=== PATIENT | male | born 1980 | race Two or more races ===

== ENCOUNTER 2018-10-02 18:09 | Emergency (ER) | payer OTHER, SELFPAY ==
[~2018-10-02] VITALS: Ht 172.7 cm; Wt 90.9 kg
[~2018-10-02 18:09] MED LIST: RISP0.5T61 PO; [UNRECOGNIZED DRUG - REMARK]
[2018-10-02 18:21] VITALS: BP 154/101
[2018-10-02 19:14] LABS: BASOPHILS % (AUTO) 0.3 % (0.0-2.0); EOSINOPHILS % (AUTO) 3.2 % (1.0-6.0); HEMATOCRIT 45.2 % (41-53); HEMOGLOBIN 15.5 g/dL (13.5-17.5); LYMPHOCYTES % (AUTO) 29.7 % (22.0-44.0); MEAN CORPUSCULAR HEMOGLOBIN 31.6 pg (26.0-34.0); MEAN CORPUSCULAR HGB CONC 34.3 G/dL (31.0-37.0); MEAN CORPUSCULAR VOLUME 92 fL (80-100); MONOCYTES # (AUTO) 0.5 K/uL (0.1-1.0); MONOCYTES % (AUTO) 7.2 % (2.0-9.0); NEUTROPHILS # (AUTO) 3.9 K/uL (1.8-7.7); NEUTROPHILS % (AUTO) 59.6 % (40.0-70.0); PLATELET COUNT (AUTO) 187 K/uL (150-450); RED BLOOD CELL COUNT(AUTO) 4.91 MIL/uL (4.50-5.90); RED CELL DISTRIBUTION WIDTH 12.2 % (11.5-14.5)
[2018-10-02 19:23] LABS: ANION GAP 11 mmol/L (8-16); CALCIUM, TOTAL 9.2 mg/dL (8.8-10.5); CARBON DIOXIDE 27 mmol/L (22-29); CHLORIDE 101 mmol/L (98-107); CREATININE 0.93 mg/dL (0.60-1.30); GLOMERULAR FILTR. RATE CALC > 60 mL/min (>60); GLUCOSE,RANDOM 96 mg/dL (70-110); POTASSIUM 3.7 mmol/L (3.5-5.1); SODIUM SERUM 139 mmol/L (136-145); UREA NITROGEN, BLOOD 18 mg/dL (7-18)
[2018-10-02 19:28] LABS: ALANINE AMINOTRANSFERASE 68 U/L (12-78); ALBUMIN 4.3 g/dL (3.4-5.0); ALKALINE PHOSPHATASE 77 U/L (46-116); ASPARTATE AMINOTRANSFERASE 48 U/L (15-37); BILIRUBIN,TOTAL 1.5 mg/dL (0.1-1.0); TOTAL PROTEIN, SERUM 8.4 g/dL (6.4-8.2)
[2018-10-02] MEDS ORDERED: FLUO-125 PO (20:12)
[2018-10-02] MEDS ORDERED: LIB25 PO (20:13)
[2018-10-02 20:26] LABS: AMPHET/METH SCREEN,URINE NEGATIVE (NEGATIVE); BARBITURATE SCREEN, URINE NEGATIVE (NEGATIVE); BENZODIAZEPINES SCREEN,URINE POSITIVE (NEGATIVE); CANNABINOID SCREEN,URINE NEGATIVE (NEGATIVE); COCAINE SCREEN,URINE NEGATIVE (NEGATIVE); METHADONE SCREEN, URINE NEGATIVE (NEGATIVE); OPIATE SCREEN,URINE NEGATIVE (NEGATIVE)
[2018-10-02 20:31] LABS: PHENCYCLIDINE SCREEN,URINE NEGATIVE (NEGATIVE)
== END 2018-10-02 21:20 | disposition home or self-care (01) ==
LOC: EMS 18:10
DX: F32.9 Major depressive disorder, single episode, unspecified (principal); F10.20 Alcohol dependence, uncomplicated; Y90.0 Blood alcohol level of less than 20 mg/100 ml
CPT/HCPCS: 36415; 80053; 80307; 85025; 99284; G0480

== ENCOUNTER 2020-06-12 23:16 | Inpatient (IN) | payer MEDICAID, OTHER ==
[~2020-06-12] VITALS: Ht 172.7 cm; Wt 82.9 kg
[~2020-06-12 23:16] MED LIST changes: +FLUO-191 PO; -RISP0.5T61 PO; +RISP2TAB23 PO; -[UNRECOGNIZED DRUG - REMARK]
[2020-06-12 23:57] LABS: BASOPHILS % (AUTO) 0.8 % (0.0-2.0); EOSINOPHILS % (AUTO) 4.6 % (1.0-6.0); HEMATOCRIT 41.1 % (41-53); HEMOGLOBIN 13.7 g/dL (13.5-17.5); LYMPHOCYTES # (AUTO) 1.6 K/uL (1.0-4.8); LYMPHOCYTES % (AUTO) 39.8 % (22.0-44.0); MEAN CORPUSCULAR HEMOGLOBIN 31.6 pg (26.0-34.0); MEAN CORPUSCULAR HGB CONC 33.2 G/dL (31.0-37.0); MEAN CORPUSCULAR VOLUME 95 fL (80-100); MONOCYTES # (AUTO) 0.4 K/uL (0.1-1.0); NEUTROPHILS # (AUTO) 1.8 K/uL (1.8-7.7); NEUTROPHILS % (AUTO) 43.8 % (40.0-70.0); PLATELET COUNT (AUTO) 163 K/uL (150-450); RED BLOOD CELL COUNT(AUTO) 4.32 MIL/uL (4.50-5.90); RED CELL DISTRIBUTION WIDTH 12.8 % (11.5-14.5)
[2020-06-13 00:07] LABS: ANION GAP 11 mmol/L (8-16); CARBON DIOXIDE 26 mmol/L (22-29); CHLORIDE 100 mmol/L (98-107); CREATININE 0.91 mg/dL (0.60-1.30); GLOMERULAR FILTR. RATE CALC > 60 mL/min (>60); GLUCOSE,RANDOM 101 mg/dL (70-110); POTASSIUM 3.7 mmol/L (3.5-5.1); SODIUM SERUM 137 mmol/L (136-145); UREA NITROGEN, BLOOD 11 mg/dL (7-18)
[2020-06-13 00:13] LABS: ALANINE AMINOTRANSFERASE 79 U/L (12-78); ALBUMIN 3.4 g/dL (3.4-5.0); ALKALINE PHOSPHATASE 64 U/L (46-116); ASPARTATE AMINOTRANSFERASE 66 U/L (15-37); BILIRUBIN,TOTAL 0.6 mg/dL (0.1-1.0); TOTAL PROTEIN, SERUM 7.4 g/dL (6.4-8.2)
[2020-06-13] MEDS ORDERED: FLUoxetine HCL 20 MG CAPSULE PO ONE (02:15)
[2020-06-13] MEDS ORDERED: RisperiDONE 1 MG TABLET PO ONE (02:15)
[2020-06-13 03:24] LABS: AMPHET/METH SCREEN,URINE NEGATIVE (NEGATIVE); BARBITURATE SCREEN, URINE NEGATIVE (NEGATIVE); BENZODIAZEPINES SCREEN,URINE NEGATIVE (NEGATIVE); CANNABINOID SCREEN,URINE POSITIVE (NEGATIVE); COCAINE SCREEN,URINE NEGATIVE (NEGATIVE); METHADONE SCREEN, URINE NEGATIVE (NEGATIVE); OPIATE SCREEN,URINE NEGATIVE (NEGATIVE); PHENCYCLIDINE SCREEN,URINE NEGATIVE (NEGATIVE)
[2020-06-13 03:37] LABS: APPEARANCE,URINE CLEAR (CLEAR); BILIRUBIN,URINE NEGATIVE (NEGATIVE); GLUCOSE, URINE (UA) NEGATIVE (NEGATIVE); KETONES,URINE NEGATIVE (NEGATIVE); LEUKOCYTE ESTERASE ,URINE NEGATIVE (NEGATIVE); NITRATE,URINE NEGATIVE (NEGATIVE); OCCULT BLOOD,URINE NEGATIVE (NEGATIVE); PH,URINE 6.5 (5.0-8.0); PROTEIN,URINE NEGATIVE (NEGATIVE)
[2020-06-13 07:37] VITALS: BP 122/74
[2020-06-13 16:10] VITALS: BP 118/64
[2020-06-13] MEDS: RisperiDONE 2 MG TABLET PO SCH (16:18)
[2020-06-13] MEDS: LORazepam 2 MG TABLET PO PRN (16:18)
[2020-06-13] MEDS: HALOPERIDOL 5 MG TABLET PO PRN (16:18)
[2020-06-13] MEDS ORDERED: CloNIDine HCL 0.1 MG TABLET PO PRN (16:45)
[2020-06-13] MEDS ORDERED: ONDANSETRON HCL 4 MG TABLET PO PRN (16:45)
[2020-06-13] MEDS ORDERED: PETROLATUM,WHITE 28 GM JELLY TP PRN (16:45)
[2020-06-13] MEDS ORDERED: GuaiFENesin/D-METHORPHAN [SUGAR-FREE] 200-20MG/10 ML SYRUP UDCUP PO PRN (16:45)
[2020-06-13] MEDS ORDERED: ALBUTEROL SULFATE HFA 90 MCG/PUFF 8 GM INHALER IH PRN (16:45)
[2020-06-13] MEDS ORDERED: MAG HYDROX/AL HYDROX/SIMETH ES 30 ML SUSPENSION UDCUP PO PRN (16:45)
[2020-06-13] MEDS ORDERED: LOPERAMIDE HCL 2 MG CAPSULE PO PRN (16:45)
[2020-06-13] MEDS ORDERED: ACETAMINOPHEN 325 MG TABLET PO PRN (16:45)
[2020-06-13] MEDS ORDERED: IBUPROFEN 400 MG TABLET PO PRN (16:45)
[2020-06-13] MEDS ORDERED: DOCUSATE SODIUM 100 MG CAPSULE PO PRN (16:45)
[2020-06-13] MEDS ORDERED: MAGNESIUM HYDROXIDE SUSPENSION 30 ML UDCUP PO PRN (16:45)
[2020-06-14 01:48] VITALS: BP 114/71
[2020-06-14] MEDS: LORazepam 2 MG TABLET PO PRN ×3 (01:51→20:03)
[2020-06-14] MEDS: ZOLPIDEM TARTRATE 10 MG TABLET PO PRN ×2 (01:51→20:03)
[2020-06-14 08:00] LABS: CHOL/HDL RATIO 3.4 (4.2-7.3)
[2020-06-14] MEDS: RisperiDONE 2 MG TABLET PO SCH ×2 (08:32→17:51)
[2020-06-14 08:35] VITALS: BP 120/66
[2020-06-14 16:05] VITALS: BP 111/78
[2020-06-14] MEDS: HALOPERIDOL 5 MG TABLET PO PRN (20:04)
[2020-06-15 03:52] VITALS: BP 124/76
[2020-06-15 08:26] VITALS: BP 112/65
[2020-06-15] MEDS: RisperiDONE 2 MG TABLET PO SCH ×2 (08:30→16:28)
[2020-06-15] MEDS: LORazepam 2 MG TABLET PO PRN (10:58)
[2020-06-15] MEDS: HALOPERIDOL 5 MG TABLET PO PRN (10:58)
[2020-06-15 16:17] VITALS: BP 116/80
[2020-06-15] MEDS: NICOTINE 14 MG/24 HOUR PATCH TD PRN (16:43)
[2020-06-15] MEDS: ZOLPIDEM TARTRATE 10 MG TABLET PO PRN (20:56)
[2020-06-16 00:06] VITALS: BP 132/89
[2020-06-16] MEDS: HALOPERIDOL 5 MG TABLET PO PRN ×4 (00:18→21:18)
[2020-06-16] MEDS: LORazepam 2 MG TABLET PO PRN ×4 (00:19→21:18)
[2020-06-16] MEDS: RisperiDONE 2 MG TABLET PO SCH ×2 (08:04→16:06)
[2020-06-16 08:20] VITALS: BP 122/73
[2020-06-16 16:04] VITALS: BP 121/79
[2020-06-16] MEDS: NICOTINE 14 MG/24 HOUR PATCH TD PRN (16:48)
[2020-06-17 04:10] VITALS: BP 118/75
[2020-06-17 08:03] VITALS: BP 106/72
[2020-06-17] MEDS: LORazepam 2 MG TABLET PO PRN ×2 (08:11→16:31)
[2020-06-17] MEDS: RisperiDONE 2 MG TABLET PO SCH ×2 (08:11→16:31)
[2020-06-17 16:08] VITALS: BP 116/80
[2020-06-17] MEDS: HALOPERIDOL 5 MG TABLET PO PRN (16:31)
[2020-06-17] MEDS: ZOLPIDEM TARTRATE 10 MG TABLET PO PRN (20:49)
[2020-06-18] MEDS: LORazepam 2 MG TABLET PO PRN ×4 (05:38→22:36)
[2020-06-18 05:49] VITALS: BP 121/84
[2020-06-18] MEDS: RisperiDONE 2 MG TABLET PO SCH (08:37)
[2020-06-18] MEDS: NICOTINE 14 MG/24 HOUR PATCH TD PRN (13:25)
[2020-06-18] MEDS: HALOPERIDOL 5 MG TABLET PO PRN ×3 (13:30→22:36)
[2020-06-18 15:15] VITALS: BP 112/73
[2020-06-18] MEDS: RisperiDONE 3 MG TABLET PO SCH (16:18)
[2020-06-18 17:47] VITALS: BP 132/82
[2020-06-18] MEDS: ZOLPIDEM TARTRATE 10 MG TABLET PO PRN (20:53)
[2020-06-19 05:59] VITALS: BP 128/78
[2020-06-19 08:33] VITALS: BP 116/62
[2020-06-19] MEDS: RisperiDONE 3 MG TABLET PO SCH ×2 (08:33→16:15)
[2020-06-19] MEDS: HALOPERIDOL 5 MG TABLET PO PRN ×3 (08:41→20:14)
[2020-06-19] MEDS: LORazepam 2 MG TABLET PO PRN ×3 (08:41→20:14)
[2020-06-19] MEDS: NICOTINE 14 MG/24 HOUR PATCH TD PRN (15:57)
[2020-06-19 16:06] VITALS: BP 117/64
[2020-06-19] MEDS: ZOLPIDEM TARTRATE 10 MG TABLET PO PRN (20:14)
[2020-06-20 06:08] VITALS: BP 128/70
[2020-06-20 08:54] VITALS: BP 110/77
[2020-06-20] MEDS: RisperiDONE 3 MG TABLET PO SCH ×2 (09:13→16:55)
[2020-06-20] MEDS: LORazepam 2 MG TABLET PO PRN (12:46)
[2020-06-20] MEDS: HALOPERIDOL 5 MG TABLET PO PRN (12:46)
[2020-06-20 16:04] VITALS: BP 107/70
[2020-06-20] MEDS: ZOLPIDEM TARTRATE 10 MG TABLET PO PRN (20:21)
[2020-06-21 05:10] VITALS: BP 121/73
[2020-06-21] MEDS: RisperiDONE 3 MG TABLET PO SCH (07:54)
[2020-06-21 08:01] VITALS: BP 131/83
[2020-06-21] MEDS: LORazepam 2 MG TABLET PO PRN ×2 (08:47→12:49)
[2020-06-21] MEDS: HALOPERIDOL 5 MG TABLET PO PRN ×2 (08:47→12:49)
[2020-06-21] MEDS ORDERED: RISP3TAB14 PO (12:58)
== END 2020-06-21 16:45 | disposition home or self-care (01) | DRG 750 ==
LOC: EMS 23:17 → B3A 06-13 03:26
PROVIDERS: ADMIT Psychiatry & Neurology Psychiatry; ATTEND Psychiatry & Neurology Psychiatry
DX: F20.9 Schizophrenia, unspecified (principal); E78.5 Hyperlipidemia, unspecified; D72.819 Decreased white blood cell count, unspecified; F10.10 Alcohol abuse, uncomplicated; R45.851 Suicidal ideations; Z91.14 Patient's other noncompliance with medication regimen; R74.0 Nonspecific elevation of levels of transaminase and lactic acid dehydrogenase [LDH]
CPT/HCPCS: G0480

== ENCOUNTER 2021-08-01 20:32 | Inpatient (IN) | payer MEDICAID, OTHER ==
[~2021-08-01] VITALS: Ht 172.7 cm; Wt 78.8 kg
[~2021-08-01 20:32] MED LIST changes: -FLUO-191 PO; -RISP2TAB23 PO; +RISP3TAB35 PO
[2021-08-01 21:00] LABS: COVID AG,FIA SOURCE NASOPHARYNGEAL
[2021-08-01 21:22] LABS: AMPHET/METH SCREEN,URINE NEGATIVE (NEGATIVE); BARBITURATE SCREEN, URINE NEGATIVE (NEGATIVE); BENZODIAZEPINES SCREEN,URINE NEGATIVE (NEGATIVE); CANNABINOID SCREEN,URINE POSITIVE (NEGATIVE); COCAINE SCREEN,URINE NEGATIVE (NEGATIVE); METHADONE SCREEN, URINE NEGATIVE (NEGATIVE); OPIATE SCREEN,URINE NEGATIVE (NEGATIVE); PHENCYCLIDINE SCREEN,URINE NEGATIVE (NEGATIVE)
[2021-08-01 23:28] LABS: BASOPHILS % (AUTO) 0.6 % (0.0-2.0); EOSINOPHILS % (AUTO) 3.8 % (1.0-6.0); HEMATOCRIT 39.1 % (41-53); HEMOGLOBIN 13.3 g/dL (13.5-17.5); LYMPHOCYTES # (AUTO) 1.5 K/uL (1.0-4.8); MEAN CORPUSCULAR HEMOGLOBIN 32.2 pg (26.0-34.0); MEAN CORPUSCULAR HGB CONC 34.1 G/dL (31.0-37.0); MEAN CORPUSCULAR VOLUME 95 fL (80-100); MONOCYTES # (AUTO) 0.5 K/uL (0.1-1.0); NEUTROPHILS # (AUTO) 2.6 K/uL (1.8-7.7); NEUTROPHILS % (AUTO) 54.6 % (40.0-70.0); PLATELET COUNT (AUTO) 170 K/uL (150-450); RED BLOOD CELL COUNT(AUTO) 4.13 MIL/uL (4.50-5.90); RED CELL DISTRIBUTION WIDTH 13.6 % (11.5-14.5)
[2021-08-01 23:38] LABS: ANION GAP 7 mmol/L (8-16); CALCIUM, TOTAL 8.8 mg/dL (8.8-10.5); CARBON DIOXIDE 29 mmol/L (22-29); CHLORIDE 102 mmol/L (98-107); CREATININE 0.81 mg/dL (0.60-1.30); GLOMERULAR FILTR. RATE CALC > 60 mL/min (>60); GLUCOSE,RANDOM 131 mg/dL (70-110); POTASSIUM 4.1 mmol/L (3.5-5.1); SODIUM SERUM 138 mmol/L (136-145); UREA NITROGEN, BLOOD 23 mg/dL (7-18)
[2021-08-01 23:44] LABS: ALANINE AMINOTRANSFERASE 35 U/L (12-78); ALBUMIN 3.1 g/dL (3.4-5.0); ALKALINE PHOSPHATASE 90 U/L (46-116); ASPARTATE AMINOTRANSFERASE 32 U/L (15-37); BILIRUBIN,TOTAL 0.5 mg/dL (0.1-1.0); TOTAL PROTEIN, SERUM 6.9 g/dL (6.4-8.2)
[2021-08-02] VITALS (7 sets, daily range): BP systolic 99–126; BP diastolic 63–78
[2021-08-02] MEDS ORDERED: LORazepam 2 MG TABLET PO PRN ×2 (00:15→19:15)
[2021-08-02 07:06] LABS: CHOLESTEROL 156 mg/dL (131-200); HDL CHOLESTEROL 78 mg/dL (40-60); LDL CHOL (CALC.) 60 mg/dL (0-130); TRIGLYCERIDES 88 mg/dL (15-150)
[2021-08-02] MEDS ORDERED: ACETAMINOPHEN 325 MG TABLET PO PRN (11:15)
[2021-08-02] MEDS ORDERED: PROMETHAZINE HCL 25 MG TABLET PO PRN (11:15)
[2021-08-02] MEDS ORDERED: MAG HYDROX/AL HYDROX/SIMETH ES 30 ML SUSPENSION UDCUP PO PRN (11:15)
[2021-08-02] MEDS ORDERED: PALIPERIDONE PALMITATE 234 MG/1.5 ML SYRINGE IM ONE (11:15)
[2021-08-02] MEDS ORDERED: MAGNESIUM HYDROXIDE SUSPENSION 30 ML UDCUP PO PRN (11:15)
[2021-08-02] MEDS ORDERED: HydrOXYzine PAMOATE 50 MG CAPSULE PO PRN (11:15)
[2021-08-02] MEDS ORDERED: LOPERAMIDE HCL 2 MG CAPSULE PO PRN (11:15)
[2021-08-02] MEDS ORDERED: TUBERCULIN, PURIFIED PROTEIN DERIVATIVE 5 TU/0.1 ML SYRINGE ID ONE (11:15)
[2021-08-02] MEDS ORDERED: GuaiFENesin/D-METHORPHAN [SUGAR-FREE] 200-20MG/10 ML SYRUP UDCUP PO PRN (11:15)
[2021-08-02] MEDS: THIAMINE 100 MG TABLET PO SCH (16:27)
[2021-08-02] MEDS ORDERED: CYANOCOBALAMIN 1,000 MCG/ML VIAL IM ONE (19:15)
[2021-08-02] MEDS: MELATONIN 5 MG TABLET PO SCH (20:23)
[2021-08-02] MEDS ORDERED: OLANZapine 5 MG RAPDIS TABLET PO SCH (21:00)
[2021-08-03] MEDS ORDERED: LORazepam 2 MG TABLET PO PRN (07:00)
[2021-08-03 07:30] LABS: HEMOGLOBIN A1C 5.7 % (3.8-5.6)
[2021-08-03 07:47] LABS: CHOL/HDL RATIO 2.4 (4.2-7.3); FREE T4 (FREE THYROXINE) 0.94 ng/dL (0.76-1.46); THYROID STIMULATING HORMONE 2.66 uIU/mL (0.36-3.74)
[2021-08-03 08:11] VITALS: BP 118/82
[2021-08-03] MEDS: NALTREXONE HCL 50 MG TABLET PO SCH (09:02)
[2021-08-03] MEDS: OMEGA-3/DHA/EPA/FISH OIL 1,000 MG CAPSULE PO SCH (09:04)
[2021-08-03] MEDS: MULTIVITAMINS WITH MINERALS, THERAPEUTIC TABLET PO SCH (09:04)
[2021-08-03] MEDS: FOLIC ACID 1 MG TABLET PO SCH (09:04)
[2021-08-03] MEDS: THIAMINE 100 MG TABLET PO SCH ×2 (09:04→16:02)
[2021-08-03] MEDS: LORazepam 2 MG TABLET PO SCH ×4 (09:04→20:25)
[2021-08-03 10:15] VITALS: BP 118/82
[2021-08-03 14:08] VITALS: BP 102/64
[2021-08-03 16:00] VITALS: BP 116/74
[2021-08-03] MEDS: OLANZapine 10 MG RAPDIS TABLET PO SCH (20:25)
[2021-08-03] MEDS: MELATONIN 5 MG TABLET PO SCH (20:25)
[2021-08-03 20:31] VITALS: BP 110/69
[2021-08-04 08:00] VITALS: BP 125/80
[2021-08-04] MEDS: THIAMINE 100 MG TABLET PO SCH ×2 (08:18→16:12)
[2021-08-04] MEDS: OMEGA-3/DHA/EPA/FISH OIL 1,000 MG CAPSULE PO SCH (08:18)
[2021-08-04] MEDS: MULTIVITAMINS WITH MINERALS, THERAPEUTIC TABLET PO SCH (08:18)
[2021-08-04] MEDS: LORazepam 2 MG TABLET PO SCH ×4 (08:18→20:11)
[2021-08-04] MEDS: FOLIC ACID 1 MG TABLET PO SCH (08:18)
[2021-08-04] MEDS: NALTREXONE HCL 50 MG TABLET PO SCH (08:18)
[2021-08-04 17:00] VITALS: BP 117/81
[2021-08-04 18:51] VITALS: BP 117/81
[2021-08-04] MEDS ORDERED: NICOTINE 21 MG/24 HOUR PATCH TD PRN (19:00)
[2021-08-04] MEDS: MELATONIN 5 MG TABLET PO SCH (20:10)
[2021-08-04] MEDS: DIVALPROEX SODIUM 500 MG ER TABLET PO SCH (20:11)
[2021-08-04] MEDS: OLANZapine 10 MG RAPDIS TABLET PO SCH (20:11)
[2021-08-05] MEDS: ZOLPIDEM TARTRATE 10 MG TABLET PO PRN (01:06)
[2021-08-05] MEDS ORDERED: LORazepam 1 MG TABLET PO PRN (07:00)
[2021-08-05 08:00] VITALS: BP 119/65
[2021-08-05] MEDS: NALTREXONE HCL 50 MG TABLET PO SCH (09:09)
[2021-08-05] MEDS: FOLIC ACID 1 MG TABLET PO SCH (09:11)
[2021-08-05] MEDS: OMEGA-3/DHA/EPA/FISH OIL 1,000 MG CAPSULE PO SCH (09:11)
[2021-08-05] MEDS: THIAMINE 100 MG TABLET PO SCH ×2 (09:11→16:18)
[2021-08-05] MEDS: LORazepam 1 MG TABLET PO SCH ×4 (09:11→20:11)
[2021-08-05] MEDS: MULTIVITAMINS WITH MINERALS, THERAPEUTIC TABLET PO SCH (09:12)
[2021-08-05 16:02] VITALS: BP 121/76
[2021-08-05] MEDS: MELATONIN 5 MG TABLET PO SCH (20:10)
[2021-08-05] MEDS: DIVALPROEX SODIUM 500 MG ER TABLET PO SCH (20:10)
[2021-08-05] MEDS: OLANZapine 10 MG RAPDIS TABLET PO SCH (20:11)
[2021-08-06] MEDS: ZOLPIDEM TARTRATE 10 MG TABLET PO PRN (00:27)
[2021-08-06] MEDS ORDERED: LORazepam 1 MG TABLET PO PRN (07:00)
[2021-08-06] MEDS ORDERED: PALIPERIDONE PALMITATE 156 MG/ML SYRINGE IM ONE (09:00)
[2021-08-06 09:53] VITALS: BP 118/72
[2021-08-06] MEDS: MULTIVITAMINS WITH MINERALS, THERAPEUTIC TABLET PO SCH (11:24)
[2021-08-06] MEDS: FOLIC ACID 1 MG TABLET PO SCH (11:24)
[2021-08-06] MEDS: NALTREXONE HCL 50 MG TABLET PO SCH (11:24)
[2021-08-06] MEDS: FLUoxetine HCL 20 MG CAPSULE PO SCH (11:24)
[2021-08-06] MEDS: THIAMINE 100 MG TABLET PO SCH ×2 (11:25→16:00)
[2021-08-06] MEDS: OMEGA-3/DHA/EPA/FISH OIL 1,000 MG CAPSULE PO SCH (11:25)
[2021-08-06 16:40] VITALS: BP 139/86
[2021-08-06] MEDS: MELATONIN 5 MG TABLET PO SCH (20:05)
[2021-08-06] MEDS: DIVALPROEX SODIUM 500 MG ER TABLET PO SCH (20:06)
[2021-08-06] MEDS: OLANZapine 10 MG RAPDIS TABLET PO SCH (20:06)
[2021-08-07] MEDS: THIAMINE 100 MG TABLET PO SCH ×2 (08:42→16:01)
[2021-08-07] MEDS: FLUoxetine HCL 20 MG CAPSULE PO SCH (08:42)
[2021-08-07] MEDS: MULTIVITAMINS WITH MINERALS, THERAPEUTIC TABLET PO SCH (08:42)
[2021-08-07] MEDS: FOLIC ACID 1 MG TABLET PO SCH (08:42)
[2021-08-07] MEDS: OMEGA-3/DHA/EPA/FISH OIL 1,000 MG CAPSULE PO SCH (08:42)
[2021-08-07] MEDS: NALTREXONE HCL 50 MG TABLET PO SCH (08:42)
[2021-08-07 08:56] VITALS: BP 112/65
[2021-08-07 16:24] VITALS: BP 114/60
[2021-08-07] MEDS: OLANZapine 10 MG RAPDIS TABLET PO SCH (20:22)
[2021-08-07] MEDS: MELATONIN 5 MG TABLET PO SCH (20:22)
[2021-08-07] MEDS: DIVALPROEX SODIUM 500 MG ER TABLET PO SCH (20:22)
[2021-08-08 07:31] LABS: COVID AG,FIA SOURCE NASAL SWAB
[2021-08-08 08:00] VITALS: BP 114/68
[2021-08-08] MEDS: FOLIC ACID 1 MG TABLET PO SCH (08:44)
[2021-08-08] MEDS: MULTIVITAMINS WITH MINERALS, THERAPEUTIC TABLET PO SCH (08:44)
[2021-08-08] MEDS: NALTREXONE HCL 50 MG TABLET PO SCH (08:44)
[2021-08-08] MEDS: FLUoxetine HCL 20 MG CAPSULE PO SCH (08:44)
[2021-08-08] MEDS: THIAMINE 100 MG TABLET PO SCH ×2 (08:44→15:56)
[2021-08-08] MEDS: OMEGA-3/DHA/EPA/FISH OIL 1,000 MG CAPSULE PO SCH (08:44)
[2021-08-08 16:03] VITALS: BP 109/61
[2021-08-08] MEDS: OLANZapine 5 MG RAPDIS TABLET PO PRN (17:53)
[2021-08-08] MEDS: DIVALPROEX SODIUM 500 MG ER TABLET PO SCH (20:23)
[2021-08-08] MEDS: MELATONIN 5 MG TABLET PO SCH (20:23)
[2021-08-08] MEDS: OLANZapine 10 MG RAPDIS TABLET PO SCH (20:23)
[2021-08-09 08:06] VITALS: BP 107/70
[2021-08-09] MEDS: FOLIC ACID 1 MG TABLET PO SCH (08:51)
[2021-08-09] MEDS: FLUoxetine HCL 20 MG CAPSULE PO SCH (08:51)
[2021-08-09] MEDS: THIAMINE 100 MG TABLET PO SCH ×2 (08:51→16:00)
[2021-08-09] MEDS: MULTIVITAMINS WITH MINERALS, THERAPEUTIC TABLET PO SCH (08:51)
[2021-08-09] MEDS: NALTREXONE HCL 50 MG TABLET PO SCH (08:52)
[2021-08-09] MEDS: OMEGA-3/DHA/EPA/FISH OIL 1,000 MG CAPSULE PO SCH (09:05)
[2021-08-09 16:13] VITALS: BP 109/65
[2021-08-09] MEDS: MELATONIN 5 MG TABLET PO SCH (20:17)
[2021-08-09] MEDS: DIVALPROEX SODIUM 500 MG ER TABLET PO SCH (20:17)
[2021-08-09] MEDS: OLANZapine 10 MG RAPDIS TABLET PO SCH (20:17)
[2021-08-10] MEDS: OMEGA-3/DHA/EPA/FISH OIL 1,000 MG CAPSULE PO SCH (08:20)
[2021-08-10] MEDS: MULTIVITAMINS WITH MINERALS, THERAPEUTIC TABLET PO SCH (08:20)
[2021-08-10] MEDS: NALTREXONE HCL 50 MG TABLET PO SCH (08:20)
[2021-08-10] MEDS: FLUoxetine HCL 20 MG CAPSULE PO SCH (08:20)
[2021-08-10] MEDS: THIAMINE 100 MG TABLET PO SCH ×2 (08:20→16:04)
[2021-08-10] MEDS: FOLIC ACID 1 MG TABLET PO SCH (08:20)
[2021-08-10 08:57] VITALS: BP 113/64
[2021-08-10 16:00] VITALS: BP 99/68
[2021-08-10] MEDS: MELATONIN 5 MG TABLET PO SCH (20:08)
[2021-08-10] MEDS: OLANZapine 10 MG RAPDIS TABLET PO SCH (20:08)
[2021-08-10] MEDS: DIVALPROEX SODIUM 500 MG ER TABLET PO SCH (20:09)
[2021-08-11 09:23] VITALS: BP 106/67
[2021-08-11] MEDS: MULTIVITAMINS WITH MINERALS, THERAPEUTIC TABLET PO SCH (09:33)
[2021-08-11] MEDS: FOLIC ACID 1 MG TABLET PO SCH (09:33)
[2021-08-11] MEDS: THIAMINE 100 MG TABLET PO SCH ×2 (09:33→16:10)
[2021-08-11] MEDS: FLUoxetine HCL 20 MG CAPSULE PO SCH (09:33)
[2021-08-11] MEDS: NALTREXONE HCL 50 MG TABLET PO SCH (09:33)
[2021-08-11] MEDS: OMEGA-3/DHA/EPA/FISH OIL 1,000 MG CAPSULE PO SCH (09:33)
[2021-08-11 17:06] VITALS: BP 102/62
[2021-08-11] MEDS: OLANZapine 10 MG RAPDIS TABLET PO SCH (20:25)
[2021-08-11] MEDS: DIVALPROEX SODIUM 500 MG ER TABLET PO SCH (20:25)
[2021-08-11] MEDS: MELATONIN 5 MG TABLET PO SCH (20:25)
[2021-08-12] MEDS: MULTIVITAMINS WITH MINERALS, THERAPEUTIC TABLET PO SCH (08:48)
[2021-08-12] MEDS: THIAMINE 100 MG TABLET PO SCH (08:48)
[2021-08-12] MEDS: OMEGA-3/DHA/EPA/FISH OIL 1,000 MG CAPSULE PO SCH (08:48)
[2021-08-12] MEDS: FLUoxetine HCL 20 MG CAPSULE PO SCH (08:49)
[2021-08-12] MEDS: FOLIC ACID 1 MG TABLET PO SCH (08:49)
[2021-08-12] MEDS: NALTREXONE HCL 50 MG TABLET PO SCH (08:50)
[2021-08-12 09:46] VITALS: BP 104/58
[2021-08-12 16:00] VITALS: BP 115/66
[2021-08-12] MEDS: MELATONIN 5 MG TABLET PO SCH (20:46)
[2021-08-12] MEDS: OLANZapine 10 MG RAPDIS TABLET PO SCH (20:46)
[2021-08-12] MEDS: DIVALPROEX SODIUM 500 MG ER TABLET PO SCH (20:46)
[2021-08-13] MEDS: FLUoxetine HCL 20 MG CAPSULE PO SCH (08:57)
[2021-08-13] MEDS: OMEGA-3/DHA/EPA/FISH OIL 1,000 MG CAPSULE PO SCH (08:57)
[2021-08-13] MEDS: MULTIVITAMINS WITH MINERALS, THERAPEUTIC TABLET PO SCH (08:57)
[2021-08-13] MEDS: NALTREXONE HCL 50 MG TABLET PO SCH (08:57)
[2021-08-13 10:13] VITALS: BP 140/85
[2021-08-13 16:37] VITALS: BP 109/68
[2021-08-13] MEDS: DIVALPROEX SODIUM 500 MG ER TABLET PO SCH (21:13)
[2021-08-13] MEDS: MELATONIN 5 MG TABLET PO SCH (21:14)
[2021-08-13] MEDS: OLANZapine 10 MG RAPDIS TABLET PO SCH (21:14)
[2021-08-14] MEDS: NALTREXONE HCL 50 MG TABLET PO SCH (09:05)
[2021-08-14] MEDS: FLUoxetine HCL 20 MG CAPSULE PO SCH (09:05)
[2021-08-14] MEDS: MULTIVITAMINS WITH MINERALS, THERAPEUTIC TABLET PO SCH (09:05)
[2021-08-14] MEDS: OMEGA-3/DHA/EPA/FISH OIL 1,000 MG CAPSULE PO SCH (09:05)
[2021-08-14 09:06] VITALS: BP 126/82
[2021-08-14 17:04] VITALS: BP 119/76
[2021-08-14] MEDS: OLANZapine 10 MG RAPDIS TABLET PO SCH (20:54)
[2021-08-14] MEDS: DIVALPROEX SODIUM 500 MG ER TABLET PO SCH (20:54)
[2021-08-14] MEDS: MELATONIN 5 MG TABLET PO SCH (20:54)
[2021-08-15] MEDS: MULTIVITAMINS WITH MINERALS, THERAPEUTIC TABLET PO SCH (08:28)
[2021-08-15] MEDS: NALTREXONE HCL 50 MG TABLET PO SCH (08:28)
[2021-08-15] MEDS: OMEGA-3/DHA/EPA/FISH OIL 1,000 MG CAPSULE PO SCH (08:28)
[2021-08-15] MEDS: FLUoxetine HCL 20 MG CAPSULE PO SCH (08:28)
[2021-08-15 08:30] VITALS: BP 123/66
[2021-08-15 09:33] LABS: COVID AG,FIA SOURCE NASAL SWAB
[2021-08-15] MEDS: OLANZapine 5 MG RAPDIS TABLET PO PRN (16:20)
[2021-08-15 16:32] VITALS: BP 123/66
[2021-08-15] MEDS: DIVALPROEX SODIUM 500 MG ER TABLET PO SCH (20:22)
[2021-08-15] MEDS: MELATONIN 5 MG TABLET PO SCH (20:22)
[2021-08-15] MEDS: OLANZapine 10 MG RAPDIS TABLET PO SCH (20:22)
[2021-08-16] MEDS: OMEGA-3/DHA/EPA/FISH OIL 1,000 MG CAPSULE PO SCH (08:45)
[2021-08-16] MEDS: MULTIVITAMINS WITH MINERALS, THERAPEUTIC TABLET PO SCH (08:45)
[2021-08-16] MEDS: NALTREXONE HCL 50 MG TABLET PO SCH (08:45)
[2021-08-16] MEDS: FLUoxetine HCL 20 MG CAPSULE PO SCH (08:45)
[2021-08-16 14:09] VITALS: BP 105/69
[2021-08-16 16:00] VITALS: BP 101/68
[2021-08-16] MEDS: DIVALPROEX SODIUM 500 MG ER TABLET PO SCH (20:15)
[2021-08-16] MEDS: OLANZapine 10 MG RAPDIS TABLET PO SCH (20:16)
[2021-08-16] MEDS: MELATONIN 5 MG TABLET PO SCH (20:16)
[2021-08-16] MEDS ORDERED: MELA5TAB40 PO (21:34)
[2021-08-16] MEDS ORDERED: DIVA-80 PO (21:34)
[2021-08-16] MEDS ORDERED: OLAN10TA26 PO (21:34)
[2021-08-16] MEDS ORDERED: OMEG-135 PO (21:34)
[2021-08-16] MEDS ORDERED: NALT50TA PO (21:34)
[2021-08-16] MEDS ORDERED: FLUO20CA36 PO (21:34)
[2021-08-17 08:00] VITALS: BP 104/58
[2021-08-17] MEDS: FLUoxetine HCL 20 MG CAPSULE PO SCH (09:49)
[2021-08-17] MEDS: NALTREXONE HCL 50 MG TABLET PO SCH (09:50)
[2021-08-17] MEDS: MULTIVITAMINS WITH MINERALS, THERAPEUTIC TABLET PO SCH (09:50)
[2021-08-17] MEDS: OMEGA-3/DHA/EPA/FISH OIL 1,000 MG CAPSULE PO SCH (09:50)
[2021-08-17 14:36] LABS: BASOPHILS % (AUTO) 0.5 % (0.0-2.0); HEMATOCRIT 41.5 % (41-53); HEMOGLOBIN 14.1 g/dL (13.5-17.5); LYMPHOCYTES # (AUTO) 1.5 K/uL (1.0-4.8); LYMPHOCYTES % (AUTO) 30.5 % (22.0-44.0); MEAN CORPUSCULAR HEMOGLOBIN 32.1 pg (26.0-34.0); MEAN CORPUSCULAR VOLUME 94 fL (80-100); MONOCYTES # (AUTO) 0.4 K/uL (0.1-1.0); MONOCYTES % (AUTO) 7.9 % (2.0-9.0); NEUTROPHILS # (AUTO) 2.8 K/uL (1.8-7.7); NEUTROPHILS % (AUTO) 57.1 % (40.0-70.0); PLATELET COUNT (AUTO) 200 K/uL (150-450); RED CELL DISTRIBUTION WIDTH 12.5 % (11.5-14.5)
[2021-08-17 16:29] VITALS: BP 107/67
[2021-08-17] MEDS: DIVALPROEX SODIUM 500 MG ER TABLET PO SCH (20:14)
[2021-08-17] MEDS: MELATONIN 5 MG TABLET PO SCH (20:15)
[2021-08-17] MEDS: OLANZapine 10 MG RAPDIS TABLET PO SCH (20:15)
[2021-08-18 08:00] VITALS: BP 132/78
[2021-08-18] MEDS: FLUoxetine HCL 20 MG CAPSULE PO SCH (10:06)
[2021-08-18] MEDS: MULTIVITAMINS WITH MINERALS, THERAPEUTIC TABLET PO SCH (10:06)
[2021-08-18] MEDS: OMEGA-3/DHA/EPA/FISH OIL 1,000 MG CAPSULE PO SCH (10:06)
[2021-08-18] MEDS: NALTREXONE HCL 50 MG TABLET PO SCH (10:06)
[2021-08-18 16:00] VITALS: BP 127/69
[2021-08-18] MEDS: DIVALPROEX SODIUM 500 MG ER TABLET PO SCH (20:43)
[2021-08-18] MEDS: MELATONIN 5 MG TABLET PO SCH (20:44)
[2021-08-18] MEDS: OLANZapine 10 MG RAPDIS TABLET PO SCH (20:44)
[2021-08-19] MEDS: OMEGA-3/DHA/EPA/FISH OIL 1,000 MG CAPSULE PO SCH (08:21)
[2021-08-19] MEDS: NALTREXONE HCL 50 MG TABLET PO SCH (08:21)
[2021-08-19] MEDS: FLUoxetine HCL 20 MG CAPSULE PO SCH (08:21)
[2021-08-19] MEDS: MULTIVITAMINS WITH MINERALS, THERAPEUTIC TABLET PO SCH (08:21)
[2021-08-19 09:39] VITALS: BP 130/77
[2021-08-19 16:16] VITALS: BP 120/83
[2021-08-19] MEDS: MELATONIN 5 MG TABLET PO SCH (20:13)
[2021-08-19] MEDS: DIVALPROEX SODIUM 500 MG ER TABLET PO SCH (20:13)
[2021-08-19] MEDS: OLANZapine 10 MG RAPDIS TABLET PO SCH (20:13)
[2021-08-20] MEDS: FLUoxetine HCL 20 MG CAPSULE PO SCH (08:14)
[2021-08-20] MEDS: OMEGA-3/DHA/EPA/FISH OIL 1,000 MG CAPSULE PO SCH (08:14)
[2021-08-20] MEDS: MULTIVITAMINS WITH MINERALS, THERAPEUTIC TABLET PO SCH (08:14)
[2021-08-20] MEDS: NALTREXONE HCL 50 MG TABLET PO SCH (08:15)
[2021-08-20 10:35] VITALS: BP 122/64
[2021-08-20] MEDS: DOXYCYCLINE HYCLATE 100 MG TABLET PO SCH ×2 (11:35→16:22)
[2021-08-20 16:55] VITALS: BP 107/61
[2021-08-20] MEDS: OLANZapine 10 MG RAPDIS TABLET PO SCH (20:02)
[2021-08-20] MEDS: MELATONIN 5 MG TABLET PO SCH (20:03)
[2021-08-20] MEDS: DIVALPROEX SODIUM 500 MG ER TABLET PO SCH (20:03)
[2021-08-21 09:36] VITALS: BP 103/65
[2021-08-21] MEDS: OMEGA-3/DHA/EPA/FISH OIL 1,000 MG CAPSULE PO SCH (10:39)
[2021-08-21] MEDS: DOXYCYCLINE HYCLATE 100 MG TABLET PO SCH ×2 (10:40→16:30)
[2021-08-21] MEDS: MULTIVITAMINS WITH MINERALS, THERAPEUTIC TABLET PO SCH (10:40)
[2021-08-21] MEDS: NALTREXONE HCL 50 MG TABLET PO SCH (10:40)
[2021-08-21] MEDS: FLUoxetine HCL 20 MG CAPSULE PO SCH (10:40)
[2021-08-21 16:33] VITALS: BP 114/73
[2021-08-21] MEDS: DIVALPROEX SODIUM 500 MG ER TABLET PO SCH (20:33)
[2021-08-21] MEDS: MELATONIN 5 MG TABLET PO SCH (20:33)
[2021-08-21] MEDS: OLANZapine 10 MG RAPDIS TABLET PO SCH (20:33)
[2021-08-22 08:40] VITALS: BP 113/61
[2021-08-22] MEDS: MULTIVITAMINS WITH MINERALS, THERAPEUTIC TABLET PO SCH (09:02)
[2021-08-22] MEDS: NALTREXONE HCL 50 MG TABLET PO SCH (09:03)
[2021-08-22] MEDS: DOXYCYCLINE HYCLATE 100 MG TABLET PO SCH ×2 (09:03→16:34)
[2021-08-22] MEDS: OMEGA-3/DHA/EPA/FISH OIL 1,000 MG CAPSULE PO SCH (09:03)
[2021-08-22] MEDS: FLUoxetine HCL 20 MG CAPSULE PO SCH (09:03)
[2021-08-22 14:28] LABS: COVID AG,FIA SOURCE NASOPHARYNGEAL
[2021-08-22 16:10] VITALS: BP 109/65
[2021-08-22] MEDS: DIVALPROEX SODIUM 500 MG ER TABLET PO SCH (20:39)
[2021-08-22] MEDS: MELATONIN 5 MG TABLET PO SCH (20:39)
[2021-08-22] MEDS: OLANZapine 10 MG RAPDIS TABLET PO SCH (20:39)
[2021-08-23 08:30] VITALS: BP 109/59
[2021-08-23] MEDS: MULTIVITAMINS WITH MINERALS, THERAPEUTIC TABLET PO SCH (08:33)
[2021-08-23] MEDS: FLUoxetine HCL 20 MG CAPSULE PO SCH (08:33)
[2021-08-23] MEDS: OMEGA-3/DHA/EPA/FISH OIL 1,000 MG CAPSULE PO SCH (08:33)
[2021-08-23] MEDS: NALTREXONE HCL 50 MG TABLET PO SCH (08:33)
[2021-08-23] MEDS: DOXYCYCLINE HYCLATE 100 MG TABLET PO SCH ×2 (08:36→16:24)
[2021-08-23 17:11] VITALS: BP 106/68
[2021-08-23] MEDS: OLANZapine 10 MG RAPDIS TABLET PO SCH (20:27)
[2021-08-23] MEDS: MELATONIN 5 MG TABLET PO SCH (20:27)
[2021-08-23] MEDS: DIVALPROEX SODIUM 500 MG ER TABLET PO SCH (20:27)
[2021-08-24 08:00] VITALS: BP 108/61
[2021-08-24] MEDS: FLUoxetine HCL 20 MG CAPSULE PO SCH (08:20)
[2021-08-24] MEDS: OMEGA-3/DHA/EPA/FISH OIL 1,000 MG CAPSULE PO SCH (08:20)
[2021-08-24] MEDS: DOXYCYCLINE HYCLATE 100 MG TABLET PO SCH ×2 (08:21→16:04)
[2021-08-24] MEDS: NALTREXONE HCL 50 MG TABLET PO SCH (08:22)
[2021-08-24] MEDS: MULTIVITAMINS WITH MINERALS, THERAPEUTIC TABLET PO SCH (08:22)
[2021-08-24 16:28] VITALS: BP 118/62
[2021-08-24] MEDS: OLANZapine 10 MG RAPDIS TABLET PO SCH (20:19)
[2021-08-24] MEDS: DIVALPROEX SODIUM 500 MG ER TABLET PO SCH (20:19)
[2021-08-24] MEDS: MELATONIN 5 MG TABLET PO SCH (20:19)
[2021-08-25 08:00] VITALS: BP 126/65
[2021-08-25] MEDS: OMEGA-3/DHA/EPA/FISH OIL 1,000 MG CAPSULE PO SCH (09:05)
[2021-08-25] MEDS: FLUoxetine HCL 20 MG CAPSULE PO SCH (09:06)
[2021-08-25] MEDS: MULTIVITAMINS WITH MINERALS, THERAPEUTIC TABLET PO SCH (09:06)
[2021-08-25] MEDS: NALTREXONE HCL 50 MG TABLET PO SCH (09:06)
[2021-08-25] MEDS: DOXYCYCLINE HYCLATE 100 MG TABLET PO SCH (09:06)
== END 2021-08-25 14:25 | disposition home or self-care (01) | DRG 750 ==
LOC: EMS 20:34 → 3EC 08-02 01:00 → 3EI 08-09 20:57
PROVIDERS: ADMIT Psychiatry & Neurology Psychiatry; ATTEND Psychiatry & Neurology Psychiatry
DX: F25.1 Schizoaffective disorder, depressive type (principal); E11.9 Type 2 diabetes mellitus without complications; R45.851 Suicidal ideations; E78.5 Hyperlipidemia, unspecified; F31.9 Bipolar disorder, unspecified; F17.210 Nicotine dependence, cigarettes, uncomplicated; S51.812A Laceration without foreign body of left forearm, initial encounter; F41.0 Panic disorder [episodic paroxysmal anxiety]; Z20.822 Contact with and (suspected) exposure to COVID-19; F60.0 Paranoid personality disorder; J44.9 Chronic obstructive pulmonary disease, unspecified; F12.10 Cannabis abuse, uncomplicated; Z55.9 Problems related to education and literacy, unspecified; Z59.00 Homelessness unspecified; Z63.9 Problem related to primary support group, unspecified; Z65.3 Problems related to other legal circumstances; Z91.14 Patient's other noncompliance with medication regimen; Z91.51 Personal history of suicidal behavior; Z79.899 Other long term (current) drug therapy; X83.8XXA Intentional self-harm by other specified means, initial encounter; Y93.89 Activity, other specified; Y92.89 Other specified places as the place of occurrence of the external cause; Y99.8 Other external cause status
CPT/HCPCS: 80053; 80061; 80164; 83036; 84439; 84443; 85025; 86592; 93005; 99285; G0480; J3420; Q9967

== ENCOUNTER 2023-04-16 23:35 | Inpatient (IN) | payer MEDICAID, OTHER ==
[~2023-04-16] VITALS: Ht 172.7 cm; Wt 77.2 kg
[~2023-04-16 23:35] MED LIST changes: +DIVA500T53 PO; +FLUO20CA36 PO; +MELA5TAB40 PO; +NALT50TA PO; +OLAN10TA26 PO; +OMEG-135 PO; -RISP3TAB35 PO
[2023-04-17 01:22] LABS: COVID AG,FIA SOURCE NASAL SWAB
[2023-04-17 01:37] LABS: BASOPHILS % (AUTO) 0.7 % (0.0-2.0); EOSINOPHILS % (AUTO) 3.5 % (1.0-6.0); HEMATOCRIT 41.9 % (41-53); HEMOGLOBIN 14.4 g/dL (13.5-17.5); LYMPHOCYTES # (AUTO) 1.3 K/uL (1.0-4.8); LYMPHOCYTES % (AUTO) 25.5 % (22.0-44.0); MEAN CORPUSCULAR HGB CONC 34.5 G/dL (31.0-37.0); MEAN CORPUSCULAR VOLUME 96 fL (80-100); MONOCYTES # (AUTO) 0.5 K/uL (0.1-1.0); MONOCYTES % (AUTO) 9.6 % (2.0-9.0); NEUTROPHILS # (AUTO) 3.2 K/uL (1.8-7.7); NEUTROPHILS % (AUTO) 60.7 % (40.0-70.0); PLATELET COUNT (AUTO) 173 K/uL (150-450); RED BLOOD CELL COUNT(AUTO) 4.38 MIL/uL (4.50-5.90); RED CELL DISTRIBUTION WIDTH 13.4 % (11.5-14.5)
[2023-04-17 01:44] LABS: ANION GAP 7 mmol/L (8-16); CALCIUM, TOTAL 9.7 mg/dL (8.8-10.5); CARBON DIOXIDE 29 mmol/L (22-29); CHLORIDE 96 mmol/L (98-107); CREATININE 0.81 mg/dL (0.60-1.30); GLOMERULAR FILTR. RATE CALC > 60 mL/min (>60); GLUCOSE,RANDOM 141 mg/dL (70-110); POTASSIUM 3.5 mmol/L (3.5-5.1); SODIUM SERUM 132 mmol/L (136-145)
[2023-04-17 01:50] LABS: ALANINE AMINOTRANSFERASE 130 U/L (12-78); ALKALINE PHOSPHATASE 83 U/L (46-116); ASPARTATE AMINOTRANSFERASE 99 U/L (15-37); BILIRUBIN,TOTAL 1.5 mg/dL (0.1-1.0); TOTAL PROTEIN, SERUM 8.1 g/dL (6.4-8.2)
[2023-04-17] MEDS ORDERED: HALOPERIDOL 5 MG TABLET PO PRN (02:00)
[2023-04-17] MEDS ORDERED: PALIPERIDONE PALMITATE 234 MG/1.5 ML SYRINGE IM ONE (21:45)
[2023-04-17] MEDS ORDERED: LOPERAMIDE HCL 2 MG CAPSULE PO PRN (21:45)
[2023-04-17] MEDS ORDERED: MAGNESIUM HYDROXIDE SUSPENSION 30 ML UDCUP PO PRN (21:45)
[2023-04-17] MEDS ORDERED: PROMETHAZINE HCL 25 MG TABLET PO PRN (21:45)
[2023-04-17] MEDS ORDERED: ACETAMINOPHEN 325 MG TABLET PO PRN (21:45)
[2023-04-17] MEDS ORDERED: TUBERCULIN, PURIFIED PROTEIN DERIVATIVE 5 TU/0.1 ML SYRINGE ID ONE (21:45)
[2023-04-17] MEDS ORDERED: HydrOXYzine PAMOATE 50 MG CAPSULE PO PRN (21:45)
[2023-04-17] MEDS ORDERED: GuaiFENesin/D-METHORPHAN [SUGAR-FREE] 200-20MG/10 ML SYRUP UDCUP PO PRN (21:45)
[2023-04-17] MEDS ORDERED: MAG HYDROX/AL HYDROX/SIMETH ES 30 ML SUSPENSION UDCUP PO PRN (21:45)
[2023-04-17 22:16] VITALS: BP 145/81; PULSE 84; RESP 20; TEMP 97.1; O2SAT 98
[2023-04-17 22:29] VITALS: BP 145/81; PULSE 84; RESP 20; TEMP 97.1
[2023-04-17 22:38] VITALS: BP 145/81; PULSE 84; RESP 20; TEMP 97.1
[2023-04-18 07:22] LABS: HEMOGLOBIN A1C 5.7 % (3.8-5.6)
[2023-04-18 07:24] LABS: ALANINE AMINOTRANSFERASE 157 U/L (12-78); ALBUMIN 3.5 g/dL (3.4-5.0); ALKALINE PHOSPHATASE 76 U/L (46-116); ANION GAP 9 mmol/L (8-16); ASPARTATE AMINOTRANSFERASE 124 U/L (15-37); BILIRUBIN,TOTAL 1.5 mg/dL (0.1-1.0); CALCIUM, TOTAL 9.1 mg/dL (8.8-10.5); CARBON DIOXIDE 28 mmol/L (22-29); CHLORIDE 100 mmol/L (98-107); GLOMERULAR FILTR. RATE CALC > 60 mL/min (>60); GLUCOSE,RANDOM 116 mg/dL (70-110); POTASSIUM 3.7 mmol/L (3.5-5.1); SODIUM SERUM 137 mmol/L (136-145); TOTAL PROTEIN, SERUM 7.4 g/dL (6.4-8.2)
[2023-04-18 07:30] LABS: CHOL/HDL RATIO 2.1 (4.2-7.3); FREE T4 (FREE THYROXINE) 1.25 ng/dL (0.76-1.46); THYROID STIMULATING HORMONE 1.48 uIU/mL (0.36-3.74)
[2023-04-18] MEDS: OMEGA-3/DHA/EPA/FISH OIL 1,000 MG CAPSULE PO SCH (08:31)
[2023-04-18] MEDS: MULTIVITAMINS WITH MINERALS, THERAPEUTIC TABLET PO SCH (08:32)
[2023-04-18] MEDS: NALTREXONE HCL 50 MG TABLET PO SCH (08:32)
[2023-04-18] MEDS: FOLIC ACID 1 MG TABLET PO SCH (08:32)
[2023-04-18] MEDS: FLUoxetine HCL 20 MG CAPSULE PO SCH (08:32)
[2023-04-18] MEDS: THIAMINE 100 MG TABLET PO SCH ×2 (08:33→16:35)
[2023-04-18 09:52] VITALS: BP 126/82; PULSE 66; RESP 18; TEMP 97.7
[2023-04-18] MEDS: DIVALPROEX SODIUM 500 MG ER TABLET PO SCH (20:57)
[2023-04-18] MEDS: MELATONIN 5 MG TABLET PO SCH (20:58)
[2023-04-18] MEDS ORDERED: OLANZapine 5 MG RAPDIS TABLET PO SCH (21:00)
[2023-04-18 22:19] VITALS: BP 129/80; PULSE 72; RESP 18; TEMP 97.8
[2023-04-19 08:41] VITALS: RESP 18; TEMP 97.6
[2023-04-19] MEDS: MULTIVITAMINS WITH MINERALS, THERAPEUTIC TABLET PO SCH (09:46)
[2023-04-19] MEDS: THIAMINE 100 MG TABLET PO SCH ×2 (09:46→16:36)
[2023-04-19] MEDS: NALTREXONE HCL 50 MG TABLET PO SCH (09:46)
[2023-04-19] MEDS: FLUoxetine HCL 20 MG CAPSULE PO SCH (09:46)
[2023-04-19] MEDS: FOLIC ACID 1 MG TABLET PO SCH (09:46)
[2023-04-19] MEDS: OMEGA-3/DHA/EPA/FISH OIL 1,000 MG CAPSULE PO SCH (09:46)
[2023-04-19 12:06] LABS: HEPATITIS C AB (EIA) Non Reactive (Non Reactive)
[2023-04-19] MEDS: MELATONIN 5 MG TABLET PO SCH (20:45)
[2023-04-19] MEDS: DIVALPROEX SODIUM 500 MG ER TABLET PO SCH (20:46)
[2023-04-19] MEDS ORDERED: OLANZapine 10 MG RAPDIS TABLET PO SCH (21:00)
[2023-04-19 21:01] VITALS: BP 130/79; PULSE 93; RESP 18; TEMP 98
[2023-04-19] MEDS ORDERED: PALIPERIDONE PALMITATE 234 MG/1.5 ML SYRINGE IM ONE (22:00)
[2023-04-20 08:00] VITALS: BP 122/77; PULSE 90; RESP 18; TEMP 97.5
[2023-04-20] MEDS: THIAMINE 100 MG TABLET PO SCH ×2 (09:08→17:18)
[2023-04-20] MEDS: FOLIC ACID 1 MG TABLET PO SCH (09:08)
[2023-04-20] MEDS: MULTIVITAMINS WITH MINERALS, THERAPEUTIC TABLET PO SCH (09:08)
[2023-04-20] MEDS: FLUoxetine HCL 20 MG CAPSULE PO SCH (09:08)
[2023-04-20] MEDS: NALTREXONE HCL 50 MG TABLET PO SCH (09:08)
[2023-04-20] MEDS: OMEGA-3/DHA/EPA/FISH OIL 1,000 MG CAPSULE PO SCH (09:09)
[2023-04-20] MEDS: LORazepam 2 MG TABLET PO PRN ×2 (12:56→17:21)
[2023-04-20] MEDS: OLANZapine 5 MG RAPDIS TABLET PO PRN ×2 (12:56→17:21)
[2023-04-20] MEDS: DIVALPROEX SODIUM 500 MG ER TABLET PO SCH (20:38)
[2023-04-20] MEDS: MELATONIN 5 MG TABLET PO SCH (20:38)
[2023-04-20] MEDS: OLANZapine 5 MG RAPDIS TABLET PO SCH (20:46)
[2023-04-20 21:37] VITALS: BP 116/62; PULSE 82; RESP 17; TEMP 98.1
[2023-04-20] MEDS: ZOLPIDEM TARTRATE 10 MG TABLET PO PRN (22:32)
[2023-04-21 08:00] VITALS: BP 112/60; PULSE 62; RESP 17; TEMP 97.8
[2023-04-21] MEDS: OMEGA-3/DHA/EPA/FISH OIL 1,000 MG CAPSULE PO SCH (08:20)
[2023-04-21] MEDS: MULTIVITAMINS WITH MINERALS, THERAPEUTIC TABLET PO SCH (08:20)
[2023-04-21] MEDS: FOLIC ACID 1 MG TABLET PO SCH (08:20)
[2023-04-21] MEDS: NALTREXONE HCL 50 MG TABLET PO SCH (08:20)
[2023-04-21] MEDS: FLUoxetine HCL 20 MG CAPSULE PO SCH (08:21)
[2023-04-21] MEDS: THIAMINE 100 MG TABLET PO SCH ×2 (08:21→16:17)
[2023-04-21] MEDS ORDERED: PALIPERIDONE PALMITATE 156 MG/ML SYRINGE IM ONE (09:00)
[2023-04-21 20:28] VITALS: BP 123/81; PULSE 78; RESP 18; TEMP 98.1
[2023-04-21] MEDS: MELATONIN 5 MG TABLET PO SCH (21:03)
[2023-04-21] MEDS: DIVALPROEX SODIUM 500 MG ER TABLET PO SCH (21:03)
[2023-04-21] MEDS: OLANZapine 5 MG RAPDIS TABLET PO SCH (21:04)
[2023-04-22 08:15] VITALS: BP 134/75; PULSE 77; RESP 18; TEMP 98.3
[2023-04-22] MEDS: FLUoxetine HCL 20 MG CAPSULE PO SCH (08:38)
[2023-04-22] MEDS: MULTIVITAMINS WITH MINERALS, THERAPEUTIC TABLET PO SCH (08:41)
[2023-04-22] MEDS: NALTREXONE HCL 50 MG TABLET PO SCH (08:41)
[2023-04-22] MEDS: OMEGA-3/DHA/EPA/FISH OIL 1,000 MG CAPSULE PO SCH (08:41)
[2023-04-22] MEDS: THIAMINE 100 MG TABLET PO SCH ×2 (08:42→16:31)
[2023-04-22] MEDS: FOLIC ACID 1 MG TABLET PO SCH (08:42)
[2023-04-22 20:27] VITALS: BP 122/71; PULSE 79; RESP 19; TEMP 98.8
[2023-04-22] MEDS: MELATONIN 5 MG TABLET PO SCH (20:59)
[2023-04-22] MEDS: OLANZapine 5 MG RAPDIS TABLET PO SCH (20:59)
[2023-04-22] MEDS: DIVALPROEX SODIUM 500 MG ER TABLET PO SCH (21:00)
[2023-04-23] MEDS: OMEGA-3/DHA/EPA/FISH OIL 1,000 MG CAPSULE PO SCH (08:33)
[2023-04-23] MEDS: NALTREXONE HCL 50 MG TABLET PO SCH (08:33)
[2023-04-23] MEDS: THIAMINE 100 MG TABLET PO SCH ×2 (08:33→16:30)
[2023-04-23] MEDS: FOLIC ACID 1 MG TABLET PO SCH (08:34)
[2023-04-23] MEDS: MULTIVITAMINS WITH MINERALS, THERAPEUTIC TABLET PO SCH (08:34)
[2023-04-23] MEDS: FLUoxetine HCL 20 MG CAPSULE PO SCH (08:34)
[2023-04-23 08:40] VITALS: BP 114/71; PULSE 89; RESP 18; TEMP 97
[2023-04-23] MEDS ORDERED: PALIPERIDONE PALMITATE 156 MG/ML SYRINGE IM ONE (09:00)
[2023-04-23 09:41] VITALS: BP 114/71; PULSE 89; RESP 18; TEMP 96.9
[2023-04-23] MEDS: DIVALPROEX SODIUM 500 MG ER TABLET PO SCH (20:18)
[2023-04-23] MEDS: OLANZapine 5 MG RAPDIS TABLET PO SCH (20:18)
[2023-04-23] MEDS: MELATONIN 5 MG TABLET PO SCH (20:19)
[2023-04-23 21:11] VITALS: BP 108/72; PULSE 68; RESP 17; TEMP 98
[2023-04-24] MEDS: FLUoxetine HCL 20 MG CAPSULE PO SCH (08:29)
[2023-04-24] MEDS: THIAMINE 100 MG TABLET PO SCH ×2 (08:29→16:22)
[2023-04-24] MEDS: OMEGA-3/DHA/EPA/FISH OIL 1,000 MG CAPSULE PO SCH (08:29)
[2023-04-24] MEDS: MULTIVITAMINS WITH MINERALS, THERAPEUTIC TABLET PO SCH (08:29)
[2023-04-24] MEDS: FOLIC ACID 1 MG TABLET PO SCH (08:29)
[2023-04-24] MEDS: NALTREXONE HCL 50 MG TABLET PO SCH (08:30)
[2023-04-24 08:45] VITALS: BP 122/77; PULSE 99; RESP 16; TEMP 97
[2023-04-24 20:30] VITALS: BP 125/73; PULSE 69; RESP 18; TEMP 97.2
[2023-04-24] MEDS: MELATONIN 5 MG TABLET PO SCH (20:52)
[2023-04-24] MEDS: DIVALPROEX SODIUM 500 MG ER TABLET PO SCH (20:52)
[2023-04-24] MEDS ORDERED: OLANZapine 10 MG RAPDIS TABLET PO SCH (21:00)
[2023-04-24] MEDS: ZOLPIDEM TARTRATE 10 MG TABLET PO PRN (21:12)
[2023-04-25 06:17] LABS: ALANINE AMINOTRANSFERASE 51 U/L (12-78); ALBUMIN 2.9 g/dL (3.4-5.0); ALKALINE PHOSPHATASE 53 U/L (46-116); ANION GAP 7 mmol/L (8-16); ASPARTATE AMINOTRANSFERASE 26 U/L (15-37); BILIRUBIN,TOTAL 0.7 mg/dL (0.1-1.0); CALCIUM, TOTAL 8.9 mg/dL (8.8-10.5); CARBON DIOXIDE 29 mmol/L (22-29); CHLORIDE 104 mmol/L (98-107); GLOMERULAR FILTR. RATE CALC > 60 mL/min (>60); GLUCOSE,RANDOM 87 mg/dL (70-110); POTASSIUM 3.7 mmol/L (3.5-5.1); SODIUM SERUM 140 mmol/L (136-145); TOTAL PROTEIN, SERUM 6.6 g/dL (6.4-8.2)
[2023-04-25] MEDS: FOLIC ACID 1 MG TABLET PO SCH (08:37)
[2023-04-25] MEDS: THIAMINE 100 MG TABLET PO SCH ×2 (08:37→16:07)
[2023-04-25] MEDS: NALTREXONE HCL 50 MG TABLET PO SCH (08:37)
[2023-04-25] MEDS: MULTIVITAMINS WITH MINERALS, THERAPEUTIC TABLET PO SCH (08:37)
[2023-04-25] MEDS: OMEGA-3/DHA/EPA/FISH OIL 1,000 MG CAPSULE PO SCH (08:37)
[2023-04-25] MEDS ORDERED: BuPROPion HCL XL 150 MG ER TABLET PO SCH (09:00)
[2023-04-25] MEDS ORDERED: OLAN10TA26 PO (09:14)
[2023-04-25] MEDS ORDERED: NALT50TA PO (09:14)
[2023-04-25] MEDS ORDERED: OMEG-135 PO (09:14)
[2023-04-25] MEDS ORDERED: DIVA500T69 PO (09:14)
[2023-04-25] MEDS ORDERED: MELA5TAB40 PO (09:14)
[2023-04-25] MEDS ORDERED: BUPR-49 PO (09:14)
[2023-04-25 13:35] VITALS: BP 103/63; PULSE 78; RESP 18; TEMP 97.6
[2023-04-25 20:30] VITALS: BP 119/76; PULSE 92; RESP 18; TEMP 97.7
== END 2023-04-25 21:02 | disposition home or self-care (01) | DRG 750 ==
LOC: EMS 23:37 → 3EI 04-17 17:38 → UNDOADMIN 04-17 17:38 → 3EI 04-17 21:06
PROVIDERS: ADMIT Psychiatry & Neurology Psychiatry; ATTEND Psychiatry & Neurology Psychiatry
DX: F25.1 Schizoaffective disorder, depressive type (principal); E87.1 Hypo-osmolality and hyponatremia; E11.9 Type 2 diabetes mellitus without complications; D64.9 Anemia, unspecified; E78.5 Hyperlipidemia, unspecified; F12.90 Cannabis use, unspecified, uncomplicated; F15.90 Other stimulant use, unspecified, uncomplicated; Z20.822 Contact with and (suspected) exposure to COVID-19; F17.210 Nicotine dependence, cigarettes, uncomplicated; F31.9 Bipolar disorder, unspecified; F41.9 Anxiety disorder, unspecified; R79.89 Other specified abnormal findings of blood chemistry; F41.0 Panic disorder [episodic paroxysmal anxiety]; J44.9 Chronic obstructive pulmonary disease, unspecified; Z55.9 Problems related to education and literacy, unspecified; Z59.00 Homelessness unspecified; Z63.9 Problem related to primary support group, unspecified; Z65.3 Problems related to other legal circumstances; Z91.148 Patient's other noncompliance with medication regimen for other reason; Z91.199 Patient's noncompliance with other medical treatment and regimen due to unspecified reason; Z91.51 Personal history of suicidal behavior; Z79.899 Other long term (current) drug therapy
CPT/HCPCS: 80053; 80061; 80074; 80164; 83036; 84439; 84443; 85025; 86592; 99285; G0480; Q9967